=== PATIENT | male | born 1965 | race Caucasian/White ===

== ENCOUNTER → 2017-03-07 | Outpatient (CLI) | payer OTHER ==
[~2017-03-07] MED LIST: ASPI-390 PO; FEXO1TAB58 PO; NAPR1TAB9 PO
--- NOTE | 2017-03-08 06:30 | SPLIT NIGHT TECHNICIAN REPORT ---
[facility] Split Night Polysomnogram - Gas Plant Operator Report Study date: 03/07/2017 Referring Physician: Rupali STERLING M.D. Name: STUART DAVIES Gas Plant Operator: HORACIO Parker. Date of : 1965 Height: 51 years, Height 5' 9" Sex: Male Weight: 227 lbs Age: 51 Neck Circum: 17.25 in BMI: Medications: 33.52 OMEPRAZOLE 20 MG, HYDROCHLOROTHIAZIDE 12.5 MG, BUDESONIDE 32 MCG/ACT, LOSARTAN 50 MG Patient History 51 yr-old male here for a baseline/split study. He has a history of loud snoring, daytime sleepiness, witnessed apneas, and occasional morning headaches. His [place] scale is 16. The test was started on room air. ETCO2 testing was not utilized during this study. Room 3 Parameters Monitored NPSG: E1-M2, E2-M1, Fp1-M2, Fp2-M1, F3-M2, F4-M2, F4-M1, C3-M2, C4-M2, C4-M1, O1-M2, O2-M2, O2-M1, T3-M2, T4-M1, P3-M2, P4-M1, CHIN1, CHIN2, HR, EKG, Legs, PFLOW, SNOR, FLOW, CFLOW, Tidal Volume, THOR, ABDO, SpO2, PLTH, CPRESS, ETCO2 Wave, ETCO2, pH SLEEP SUMMARY DATA DIAGNOSTIC TREATMENT Lights Out: 11:03:57 PM 1:32:57 AM Lights On: 1:23:57 AM 5:46:57 AM Total Recording Time (TRT): 139.5 min. 254.0 min. Total Sleep Time (TST): 125.0 min. 237.0 min. NREM Time: 99.0 min. 139.5 min. REM Time: 26.0 min. 97.5 min. Sleep Period Time (SPT): 129.0 min. 247.0 min. Sleep Efficiency (SE): 90 % 93 % Sleep Latency: 11.0 min. 7.0 min. Arousal Index: 44.6 6.6 PAP Treatment Levels: 4, 6, 8, 9 * Optimal Pressure(s) SLEEP STAGING DATA DIAGNOSTIC TREATMENT Duration (min) TST % Duration (min) TST % Stage Wake: 14.5 min. -- 17.0 min. -- WASO: 4.0 min. -- 10.0 min. -- NREM: 99.0 min. 79 % 139.5 min. 59 % Stage N1: 19.0 min. 15 % 15.5 min. 7 % Stage N2: 76.5 min. 61 % 89.5 min. 38 % Stage N3: 3.5 min. 3 % 34.5 min. 15 % REM: 26.0 min. 21 % 97.5 min. 41 % POSITIONAL DATA Event Count Index Event Count Index Supine: N/A N/A 14 4.8 Supine NREM: N/A N/A 8 5.4 Supine REM: N/A N/A 6 4 Non-Supine: 120 57.6 12 9.9 Non-Supine NREM: 97 58.8 12 11.7 Non-Supine REM: 23 53.1 0 0.0 AROUSAL SUMMARY DATA: Event Count Index Event Count Index Apnea Arousals: 54 37.4 4 3.5 Hypopnea Arousals: 28 13.4 7 1.8 Snore Arousals: 2 1.0 3 0.8 PLM Arousals: 1 0.5 3 0.8 Non-Specific Arousals: 10 4.8 8 2.0 Total Arousals: 93 44.6 26 6.6 MYOCLONUS (PLM) Event Count Index Event Count Index PLM: 7 3.4 141 35.7 PLM AROUSAL: 1 0.5 3 0.8 PLM W/O AROUSAL 7 3.4 138 34.9 PLM W/RESP EVENT 1 0.0 1 0.0 MYOCLONUS (PLM) Event Count Index Event Count Index LM: 1 34.6 40 10.1 LM AROUSAL: 1 0.5 0 0.0 LM W/O AROUSAL LM W/RESP EVENT LM NON SPECIFIC 58 27.8 175 44.3 HEART RATE DATA DIAGNOSTIC TREATMENT Sleep (bpm): 82 78 REM (bpm): 77 92 NREM (bpm): 86 91 Tachycardia Count: 0 0 Tachycardia Duration: 0.00 0 Bradycardia Count: 0 0 Bradycardia Duration: 0.00 0 DIAGNOSTIC PORTION TREATMENT PORTION RESPIRATORY DATA Event Count Index Event Count Index AHI: -- 57.6 -- 6.3 RDI: -- 57.6 -- 7 Obstructive Apnea: 69 33.1 0 0.0 Central Apnea: 1 0.5 14 3.5 Mixed Apnea: 8 3.8 0 0.0 Hypopnea: 42 20.2 11 2.8 RERA: 0 0.0 1 0.3 Total Apneas: 78 37.4 14 3.5 RESPIRATORY DATA REM NREM SLEEP REM NREM SLEEP Supine Position: Obstructive Apneas: N/A N/A N/A 0 0 0 Central Apneas: N/A N/A N/A 3 2 5 Mixed Apneas: N/A N/A N/A 0 0 0 Hypopneas: N/A N/A N/A 3 5 8 RERA N/A N/A N/A 0 1 1 Total Supine Events: N/A N/A N/A 6 8 14 Supine AHI: N/A N/A N/A 4 5.4 4.8 Supine RDI: N/A N/A N/A 4.2 6.2 5.1 REM NREM SLEEP REM NREM SLEEP Non-Supine Position: Obstructive Apneas: 23 46 69 0 0 0 Central Apneas: 0 1 1 0 9 9 Mixed Apneas: 0 8 8 0 0 0 Hypopneas: 0 42 42 0 3 3 RERA 0 0 0 0 0 0 Total Supine Events: 23 97 120 0 12 12 Supine AHI: 53.1 58.8 57.6 0.0 11.7 9.9 Supine RDI: 53.1 58.8 57.6 0.0 11.7 9.9 OXYGEN DESTAURATION DATA: Event Count Index Event Count Index REM Desaturations: 16 36.9 14 8.6 NREM Desaturations: 102 61.8 24 10.3 SNORE DATA DIAGNOSTIC TREATMENT Snore Time: 15.7 1:39:57 AM Snore TST%: 6 1 Snore Arousal Count: 2 3 Snore Arousal Index: 1.0 0.8 Desaturation Event Summary: Minimum %SpO2 Event Count Mean/Min/Max Duration(sec.) Desaturation Index % Time In Bed > 90 118 36.4 / 10.5 / 60.0 30.3 59.4 86 - 90 66 30.9 / 7.0 / 60.0 43.8 23.0 81 - 85 16 21.0 / 4.0 / 49.8 28.4 8.6 76 - 80 5 13.6 / 6.5 / 23.3 16.1 4.7 71 - 75 3 10.4 / 9.0 / 13.0 22.3 2.0 66 - 70 0 N/A 0.0 1.2 61 - 65 0 N/A 0.0 0.8 56 - 60 0 N/A 0.0 0.2 51 - 55 0 N/A 0.0 0.0 < 50 0 N/A 0.0 0.0 OXYGEN SATURATION DATA DIAGNOSTIC TREATMENT SpO2 Mean Sleep: 84 % 92 % SpO2 Mean REM: 77 % 92 % SpO2 Mean NREM: 86 % 91 % SpO2 Minimum Sleep: 57 % 80 % SpO2 Minimum REM: 57 % 85 % SpO2 Minimum NREM: 66 % 80 % Time Below 90% (TST): 91.0 18.4 Time Below 88% (TST): 75.6 5.8 Total REM NREM Awake <50% 0.0 min. 0.0 min. 0.0 min. 0.0 min. 51 - 60% 0.8 min. 0.8 min. 0.0 min. 0.0 min. 61 - 70% 8.0 min. 6.9 min. 0.7 min. 0.3 min. 71 - 80% 26.6 min. 9.0 min. 16.8 min. 0.9 min. 81 - 90% 124.3 min. 20.8 min. 96.8 min. 6.6 min. 91 - 100% 233.8 min. 86.0 min. 124.2 min. 23.6 min. Average 89 89 89 91 Minimum SpO2 57 57 66 65 Desaturation Event Index 24.2 14.6 31.7 5.7 # Desat. Events below 89% 141 21 118 2 Time(%) with Saturation below 89% 24.7 6.6 17.1 1.0 Time(min.) with Saturation below 89% 97.3 26.1 67.1 4.0 Recording Gas Plant Operator Comments: Mr. Davies slept in the right and supine positions. Cardiac arrhythmias were noted (please refer to the printout). PLMs were noted. No bruxism noted. Snoring was noted and scored as a 5 on a scale of 1 through 5. (0=no snoring, 5=snoring loud enough to be heard through a closed door or down the kramer way). At 1:26 am, he met specific Split-Night criteria during the diagnostic portion of this study. CPAP was initiated at +4 CMH2O and up-titrated to a level of +9 CMH2O, Cflex 2 which nearly eliminated all respiratory events and snoring. A Simplus full face mask size large from [employer] was used during titration. He awoke to use the restroom one time during the night. Mr. Davies stated that he slept better than usual. The final report will be interpreted and signed by a sleep physician. The completed physician report will then be placed in the patient medical record. Therapy Event: Therapy (cm H20) 0 4 6 8 9 Total Time at Pressure (min.) 139.5 29.7 70.9 79.0 74.3 TST at Pressure (min.) 125.0 15.2 69.9 78.5 73.3 # Periods 1 1 1 1 1 Sleep Onset (min.) 11.0 7.0 0.0 0.0 0.0 REM Onset (min.) 98.0 N/A 46.8 0.0 36.8 Sleep Efficiency % 89 51 98 99 98 Wakefulness (%) 10.4 48.8 1.4 0.6 1.3 Wakefulness (min.) 14.5 14.5 1.0 0.5 1.0 NREM 1 (%) 13.6 30.3 4.2 3.2 1.3 NREM 1 (min.) 19.0 9.0 3.0 2.5 1.0 NREM 2 (%) 54.8 20.9 18.0 40.1 52.2 NREM 2 (min.) 76.5 6.2 12.8 31.7 38.8 NREM 3 (%) 2.5 0.0 48.6 0.0 0.0 NREM 3 (min.) 3.5 0.0 34.5 0.0 0.0 REM (%) 18.6 0.0 27.7 56.1 45.1 REM (min.) 26.0 0.0 19.7 44.3 33.5 # Arousals 93 11 6 6 3 Arousal Index 44.6 43.3 5.1 4.6 2.5 # Snore 402 30 43 27 3 Snore Index 193.0 118.2 36.9 20.6 2.5 AHI 57.6 51.2 4.3 2.3 3.3 AHI Supine N/A 120.0 25.7 2.3 3.3 AHI Non-Supine 57.6 48.9 0.0 N/A N/A NREM AHI 58.8 51.2 2.4 5.3 1.5 REM AHI 53.1 N/A 9.2 0.0 5.4 RDI 57.6 51.2 5.1 2.3 3.3 # Obstructive 69 0 0 0 0 # Central Ap 1 10 0 0 4 # Mixed 8 0 0 0 0 # Hypopneas 42 3 5 3 0 RERAS 0 0 1 0 0 Total Respiratory Events 120 13 6 3 4 Time Below SpO2 89.00% (min.) 82.3 3.8 4.9 2.2 0.0 Mean NREM SpO2 (%) 86 90 91 92 93 Mean REM SpO2 (%) 77 N/A 90 92 93 Mean Sleep SpO2 (%) 84 90 91 92 93 Min NREM SpO2 (%) 66 80 84 82 89 Min REM SpO2 (%) 57 N/A 85 85 89 Position Supine (min.) 0.0 0.5 11.7 78.5 73.3 Position Non-supine (min.) 125.0 14.7 58.3 0.0 0.0 LM Index Sleep 37.9 27.6 15.4 46.6 77.7 LM Index NREM 38.8 27.6 3.6 70.2 117.5 LM Index REM 34.6 N/A 45.8 28.4 30.4 Mean Heart Rate (bpm) 82 74 78 80 76 Min Heart Rate (bpm) 62 68 69 64 52
--- NOTE | 2017-03-15 16:26 | POLYSOMNOGRAPH REPORT ---
REFERRING PERSON: Dr. Ralph Lui. CHECK PROCESSOR: Liz Bennett. Mr. Duong is a 51-year-old male with loud snoring, daytime sleepiness, witnessed apneas and unrefreshing sleep. He occasionally has morning headaches. His [place] Sleepiness Scale Score on the evening of this study was 16. BMI is 33.52. Following the technical and digital specifications of the [employer] (AASM) a standard diagnostic polysomnogram was performed monitoring EEG, EOG, EMG (chin and leg deviations), oxygen saturation, body position, digital video, respiratory effort and airflow. The sleep Stage and event scoring was based on the AASM Manual for the Scoring of Sleep and Associated Events 2007 edition. Apneas are defined as a drop in the peak thermal sensor excursion by >90% of baseline for at least 10 seconds. Hypopneas were scored using the 4% oxygen desaturation rule (4A-[employer]) and a decrease in the nasal pressure excursions by >30% of baseline for at least 10 seconds. Respiratory effort-related arousal (RERA's) is defined as a sequence of breaths lasting at least 10 seconds characterized by increasing respiratory effort or flattening of the nasal pressure waveform leading to an arousal from sleep when the sequence of breaths does not meet criteria for an apnea or hypopnea. Apnea Hypopnea index (AHI) is defined as the number of apneas and hypopneas occurring in an hour of sleep. Respiratory disturbance index (RDI) is defined as the number of apneas, hypopneas, and RERA's occurring in an hour of sleep. Mr. Duong did qualify for a split night sleep study. He was observed for 125 minutes of sleep time. During that time, he had 15% N1 sleep, 61% N2 sleep, 3% N3 sleep, and 21% REM sleep. There were 93 cortical arousals from sleep. Ten of these arousals were nonspecific, 1 was due to periodic limb movements of sleep and 2 were due to snoring. The remaining 82 arousals were due to respiratory events. There were 7 periodic limb movements, 1 of which resulted in arousals. There were 69 obstructive apneas, 1 central apnea, and 8 mixed apneas. Additionally, there were 42 hypopneas. Pretreatment apnea hypopnea index was 57.6 consistent with very severe sleep apnea. Mean saturation during observation was low at 84% with desaturations with respiratory events all the way down to 57%. Therefore, at 1:26 a.m., this patient was started on CPAP therapy. He chose a large Simplus full facemask for the titration. Over the remainder of the night, this patient was titrated from a CPAP pressure of 4 to a CPAP pressure of 9. Increasing pressures were needed to prevent apneas, hypopneas and arousals. He was observed on a pressure of 9 for 73.3 minutes of recorded time, 33.5 of those minutes were spent in supine REM sleep. AHI and RDI on this pressure were both 3.3. There were no desaturations less than 89% once he was placed on treatment. IMPRESSION AND PLAN: Successful split night sleep study in this patient with severe sleep apnea and nocturnal hypoxemia. I would recommend that this patient be started on CPAP at a pressure of 9. A download from his machine can be reviewed in 1 month both to check compliance as well as AHI and further pressure adjustments can occur at that time.
== END | disposition home or self-care (01) ==
LOC: C.NEUR 20:00
PROVIDERS: ATTEND Family Medicine
DX: R06.81 Apnea, not elsewhere classified (principal); R06.83 Snoring; G47.10 Hypersomnia, unspecified